=== PATIENT | female | born 1985 | race Caucasian/White ===

== ENCOUNTER 2017-12-21 01:39 | Day surgery (SDC) | payer MEDICAID, OTHER ==
[~2017-12-21] VITALS: Ht 163.8 cm; Wt 60.0 kg
[~2017-12-21 01:39] MED LIST: DOCU-131 PO; IBUP-1222 PO; OXYC-302 PO
[2017-12-21 03:26] LABS: HCG UR SG 1.019 (1.003-1.030); MICROSCOPIC NOT IND
[2017-12-21 03:31] LABS: CULTURE INDICATED? NO
[2017-12-21] MEDS ORDERED: ACETAMINOPHEN 500 MG TABLET ONE (03:49)
[2017-12-21] MEDS ORDERED: ONDANSETRON ODT 4 MG ONE (03:49)
[2017-12-21] MEDS ORDERED: ONDANSETRON ODT 4 MG PO ONE (04:00)
[2017-12-21] MEDS ORDERED: ACETAMINOPHEN 500 MG TABLET PO ONE (04:00)
[2017-12-21 04:02] LABS: BASOPHILS # (AUTO) 0.08 x10^3/uL (0-0.1); BASOPHILS % (AUTO) 1 % (0-1); EOSINOPHILS # (AUTO) 0.03 x10^3/uL (0-0.4); EOSINOPHILS % (AUTO) 0 % (1-7); LYMPHOCYTES # (AUTO) 1.01 x10^3/uL (1-3.4); LYMPHOCYTES % (AUTO) 10 % (22-44); MD NO; MEAN CORPUSCULAR HEMOGLOBIN 32.3 pg (27.0-34.8); MEAN CORPUSCULAR HGB CONC 33.9 g/dL (32.4-35.8); MEAN CORPUSCULAR VOLUME 95.3 fL (80-100); MEAN PLATELET VOLUME 7.9 fL (7.4-10.4); MONOCYTES # (AUTO) 0.45 x10^3/uL (0.2-0.8); MONOCYTES % (AUTO) 4 % (2-9); NEUTROPHILS # (AUTO) 8.66 x10^3/uL (1.8-6.8); NEUTROPHILS % (AUTO) 85 % (42-75); PLATELET COUNT 289 x10^3/uL (130-400); RED BLOOD COUNT 3.73 x10^6/uL (3.82-5.3); RED CELL DISTRIBUTION WIDTH 12.3 % (9.6-15.2)
[2017-12-21 04:06] LABS: ALANINE AMINOTRANSFERASE 17 U/L (12-78); ALBUMIN 3.6 g/dL (3.4-5.0); ANION GAP 5 mmol/L (5-15); CALCIUM 8.3 mg/dL (8.5-10.1); CHLORIDE 109 mmol/L (98-107); CREATININE 0.84 mg/dL (0.55-1.02)
[2017-12-21 04:23] LABS: ALKALINE PHOSPHATASE 54 U/L (45-117); BILIRUBIN,TOTAL 0.7 mg/dL (0.2-1.0); TOTAL PROTEIN 6.4 g/dL (6.4-8.2)
[2017-12-21] MEDS ORDERED: SODIUM CHLORIDE 0.9% 1,000ML IVBOLUS ONE (04:30)
[2017-12-21] MEDS ORDERED: SODIUM CHLORIDE FLUSH 10ML SYR IVF ONE (04:30)
[2017-12-21] MEDS ORDERED: MORPHINE SULFATE 4 MG/ML, 1ML ONE (04:33)
[2017-12-21] MEDS ORDERED: SODIUM CHLORIDE 0.9% 1,000 ML IV ONE (04:49)
[2017-12-21] MEDS: MORPHINE SULFATE 4 MG/ML, 1ML IVPush PRN ×2 (04:52→10:51)
[2017-12-21] MEDS ORDERED: ONDANSETRON 2MG/ML, 2ML IVPush PRN ×2 (05:00→06:00)
[2017-12-21] MEDS ORDERED: MORPHINE SULFATE 4 MG/ML, 1ML IVPush PRN (05:00)
[2017-12-21] MEDS ORDERED: EPINEPHRINE 1 MG/ML, 1ML ONE (05:10)
[2017-12-21] MEDS ORDERED: BUPIVACAINE/PF 0.25% ONE (05:10)
[2017-12-21] MEDS ORDERED: MIDAZOLAM 1 MG/ML, 2ML ONE (05:15)
[2017-12-21] MEDS ORDERED: FENTANYL PF 250 MCG/5ML ONE (05:15)
[2017-12-21] MEDS ORDERED: ONDANSETRON 2MG/ML, 2ML ONE (05:40)
[2017-12-21] MEDS ORDERED: KETOROLAC 30 MG/1 ML ONE (05:40)
[2017-12-21] MEDS ORDERED: PROPOFOL 10 MG/ML, 20ML ONE (05:40)
[2017-12-21] MEDS ORDERED: CEFAZOLIN 1,000 MG ONE (05:40)
[2017-12-21] MEDS ORDERED: SUCCINYLCHOLINE 20 MG/ML, 10ML ONE (05:40)
[2017-12-21] MEDS ORDERED: ROCURONIUM 10 MG/ML,10ML ONE (05:40)
[2017-12-21] MEDS ORDERED: DEXAMETHASONE 4 MG/ML, 1ML ONE (05:40)
[2017-12-21] MEDS ORDERED: PROMETHAZINE 25 MG/ML, 1ML IV PRN (06:00)
[2017-12-21] MEDS ORDERED: MEPERIDINE/PF 25MG/0.5ML IVPush PRN (06:00)
[2017-12-21] MEDS ORDERED: KETOROLAC 30 MG/1 ML IV PRN ×2 (06:00→08:30)
[2017-12-21] MEDS ORDERED: ALBUTEROL SULFATE 2.5 MG/3 ML NPPB PRN (06:00)
[2017-12-21] MEDS ORDERED: OXYcodone 5 MG/5 ML ORAL.SOL UDC PO PRN (06:00)
[2017-12-21] MEDS ORDERED: METOCLOPRAMIDE 5 MG/ML, 2ML IV PRN (06:00)
[2017-12-21] MEDS ORDERED: LABETALOL 5MG/ML, 20ML IV PRN (06:00)
[2017-12-21] MEDS ORDERED: hydrALAzine 20 MG/ML, 1ML IV PRN (06:00)
[2017-12-21] MEDS ORDERED: HYDROmorphone 1 MG/ML, 1ML IV PRN ×2 (06:00→08:30)
[2017-12-21] MEDS ORDERED: OXYcodone 5 MG/5 ML ORAL.SOL UDC ONE (06:50)
[2017-12-21] MEDS ORDERED: FENTANYL PF 100 MCG/2ML ONE (06:50)
[2017-12-21] MEDS: FENTANYL PF 100 MCG/2ML IV PRN ×2 (06:53→07:00)
[2017-12-21 07:34] VITALS: BP 107/53
[2017-12-21] MEDS ORDERED: PNEUMOCOCCAL 23 VACCINE IM-VACC ONE (08:00)
[2017-12-21] MEDS ORDERED: ONDANSETRON 2MG/ML, 2ML IV PRN (08:30)
[2017-12-21] MEDS ORDERED: IBUPROFEN 600 MG TABLET PO PRN (08:30)
[2017-12-21] MEDS ORDERED: HYDROcodone/APAP 5/325 TABLET PO PRN (08:30)
[2017-12-21] MEDS ORDERED: OXYcodone/APAP 5/325MG TABLET PO PRN (08:30)
[2017-12-21 11:55] VITALS: BP 105/50
[2017-12-22] MEDS ORDERED: IBUP-1484 PO (21:50)
[2017-12-22] MEDS ORDERED: ACET650S21 PO (21:50)
== END 2017-12-21 12:28 | disposition home or self-care (01) ==
LOC: ED 04:23 → EDIP 04:49 → UNDOADMIN 04:49 → SDC 04:49 → 4NOR 07:33 → EDIP 07:33 → SDC 12:28 → UNDODISIN 12:28
PROVIDERS: ATTEND Student in an Organized Health Care Education/Training Program
DX: O00.90 Unspecified ectopic pregnancy without intrauterine pregnancy (principal); Z98.890 Other specified postprocedural states
CPT/HCPCS: 36415; 59151; 76801; 80053; 81003; 81025; 84702; 85025; 86850; 86900; 88305; 90732; 96374; 96375; 99291; J0171; J0330; J0690; J1100; J1170; J1885; J2250; J2405; J2704; J3010; J3490; J7030; Q0162

== ENCOUNTER 2017-12-22 19:40 | Inpatient (IN) | payer MEDICAID ==
[~2017-12-22] VITALS: Ht 163.8 cm; Wt 61.8 kg
[2017-12-22 20:18] LABS: BASOPHILS # (AUTO) 0.06 x10^3/uL (0-0.1); BASOPHILS % (AUTO) 1 % (0-1); EOSINOPHILS % (AUTO) 2 % (1-7); LYMPHOCYTES # (AUTO) 2.16 x10^3/uL (1-3.4); LYMPHOCYTES % (AUTO) 33 % (22-44); MD NO; MEAN CORPUSCULAR HEMOGLOBIN 32.4 pg (27.0-34.8); MEAN CORPUSCULAR HGB CONC 33.8 g/dL (32.4-35.8); MEAN PLATELET VOLUME 7.8 fL (7.4-10.4); MONOCYTES # (AUTO) 0.49 x10^3/uL (0.2-0.8); MONOCYTES % (AUTO) 7 % (2-9); NEUTROPHILS % (AUTO) 58 % (42-75); PLATELET COUNT 231 x10^3/uL (130-400); RED BLOOD COUNT 2.89 x10^6/uL (3.82-5.3); RED CELL DISTRIBUTION WIDTH 12.5 % (9.6-15.2)
[2017-12-22 20:26] LABS: ALANINE AMINOTRANSFERASE 40 U/L (12-78); ALBUMIN 3.4 g/dL (3.4-5.0); ANION GAP 10 mmol/L (5-15); CHLORIDE 107 mmol/L (98-107)
[2017-12-22 20:28] LABS: ALKALINE PHOSPHATASE 65 U/L (45-117); BILIRUBIN,TOTAL 0.3 mg/dL (0.2-1.0); TOTAL PROTEIN 6.4 g/dL (6.4-8.2)
[2017-12-22] MEDS ORDERED: SODIUM CHLORIDE 0.9% 1,000ML IVBOLUS ONE (21:30)
[2017-12-22] MEDS ORDERED: HYDROcodone/APAP 5/325 TABLET PO ONE (21:30)
[2017-12-22] MEDS ORDERED: IBUP-1484 PO (21:50)
[2017-12-22] MEDS ORDERED: ACET650S21 PO (21:50)
[2017-12-22 22:11] LABS: CULTURE INDICATED? NO; MICROSCOPIC INDICATED
[2017-12-22] MEDS ORDERED: MORPHINE SULFATE 4 MG/ML, 1ML ONE (22:18)
[2017-12-22] MEDS ORDERED: MORPHINE SULFATE 4 MG/ML, 1ML IVPush ONE (22:30)
[2017-12-23] VITALS (13 sets, daily range): BP systolic 94–105; BP diastolic 57–68
[2017-12-23] MEDS ORDERED: ONDANSETRON 2MG/ML, 2ML IVPush PRN (00:30)
[2017-12-23] MEDS ORDERED: morphine SULFATE 10 MG/ML, 1ML IVPush PRN (00:30)
[2017-12-23] MEDS ORDERED: NS + 20MEQ KCL 1,000 ML IV ONE (00:31)
[2017-12-23] MEDS: NS + 20MEQ KCL 1,000 ML IV SCH ×2 (01:42→20:37)
[2017-12-23 05:55] LABS: BASOPHILS # (AUTO) 0.02 x10^3/uL (0-0.1); BASOPHILS % (AUTO) 1 % (0-1); EOSINOPHILS % (AUTO) 2 % (1-7); LYMPHOCYTES # (AUTO) 1.89 x10^3/uL (1-3.4); LYMPHOCYTES % (AUTO) 46 % (22-44); MD NO; MEAN CORPUSCULAR HEMOGLOBIN 32.9 pg (27.0-34.8); MEAN CORPUSCULAR HGB CONC 34.1 g/dL (32.4-35.8); MEAN CORPUSCULAR VOLUME 96.3 fL (80-100); MEAN PLATELET VOLUME 8.3 fL (7.4-10.4); MONOCYTES % (AUTO) 7 % (2-9); NEUTROPHILS % (AUTO) 44 % (42-75); PLATELET COUNT 179 x10^3/uL (130-400); RED BLOOD COUNT 2.33 x10^6/uL (3.82-5.3); RED CELL DISTRIBUTION WIDTH 12.6 % (9.6-15.2)
[2017-12-23 06:05] LABS: ANION GAP 7 mmol/L (5-15); CHLORIDE 111 mmol/L (98-107); CREATININE 0.74 mg/dL (0.55-1.02)
[2017-12-23 06:07] LABS: CALCIUM 7.6 mg/dL (8.5-10.1)
[2017-12-23] MEDS ORDERED: MORPHINE SULFATE 4 MG/ML, 1ML ONE (07:51)
[2017-12-23] MEDS ORDERED: FAMOTIDINE 20 MG/2 ML IVPush SCH (09:00)
[2017-12-23] MEDS: HYDROcodone/APAP 5/325 TABLET PO PRN (10:38)
[2017-12-23] MEDS: morphine SULFATE 10 MG/ML, 1ML IVPush PRN ×2 (13:46→20:37)
[2017-12-23] MEDS: FAMOTIDINE 20 MG TABLET PO SCH (20:37)
[2017-12-24 01:57] VITALS: BP 103/66
[2017-12-24] MEDS: morphine SULFATE 10 MG/ML, 1ML IVPush PRN (04:35)
[2017-12-24] MEDS: NS + 20MEQ KCL 1,000 ML IV SCH (04:35)
[2017-12-24 05:26] LABS: BASOPHILS # (AUTO) 0.01 x10^3/uL (0-0.1); BASOPHILS % (AUTO) 0 % (0-1); EOSINOPHILS # (AUTO) 0.07 x10^3/uL (0-0.4); EOSINOPHILS % (AUTO) 2 % (1-7); LYMPHOCYTES # (AUTO) 1.57 x10^3/uL (1-3.4); LYMPHOCYTES % (AUTO) 36 % (22-44); MD NO; MEAN CORPUSCULAR HEMOGLOBIN 32.2 pg (27.0-34.8); MEAN CORPUSCULAR HGB CONC 33.9 g/dL (32.4-35.8); MEAN CORPUSCULAR VOLUME 95.1 fL (80-100); MEAN PLATELET VOLUME 8.1 fL (7.4-10.4); MONOCYTES # (AUTO) 0.29 x10^3/uL (0.2-0.8); MONOCYTES % (AUTO) 6 % (2-9); NEUTROPHILS % (AUTO) 56 % (42-75); PLATELET COUNT 206 x10^3/uL (130-400); RED BLOOD COUNT 3.16 x10^6/uL (3.82-5.3); RED CELL DISTRIBUTION WIDTH 12.9 % (9.6-15.2)
[2017-12-24 07:00] VITALS: BP 102/66
[2017-12-24] MEDS ORDERED: HYDR-3240 PO (07:56)
[2017-12-24] MEDS: FAMOTIDINE 20 MG TABLET PO SCH (09:27)
[2017-12-24] MEDS: HYDROcodone/APAP 5/325 TABLET PO PRN (09:27)
== END 2017-12-24 12:58 | disposition home or self-care (01) | DRG 920 ==
LOC: ED 20:36 → EDIP 12-23 00:07 → 3NE 12-23 01:03 → DCLOUNGE 12-24 12:47
PROVIDERS: ADMIT Family Medicine; ATTEND Family Medicine
PROC: 30233N1 Transfusion of Nonautologous Red Blood Cells into Peripheral Vein, Percutaneous Approach (ICD-10-PCS; principal; 2017-12-23)
DX: L76.22 Postprocedural hemorrhage of skin and subcutaneous tissue following other procedure (principal); D62 Acute posthemorrhagic anemia; Y83.8 Other surgical procedures as the cause of abnormal reaction of the patient, or of later complication, without mention of misadventure at the time of the procedure; Y92.89 Other specified places as the place of occurrence of the external cause; L76.32 Postprocedural hematoma of skin and subcutaneous tissue following other procedure; Z87.891 Personal history of nicotine dependence; Z88.0 Allergy status to penicillin; Z98.891 History of uterine scar from previous surgery; Z90.79 Acquired absence of other genital organ(s)
CPT/HCPCS: 36415; 36430; 71045; 74176; 76830; 80048; 80053; 81001; 85025; 86850; 86900; 86923; 93005; 93970; 96361; 96374; J3480; J2270; J7030; P9016